=== PATIENT | female | born 1945 | race Hispanic/Latino ===

== ENCOUNTER 2017-10-05 18:05 | Emergency (ER) | payer MEDICARE, BC ==
[2017-10-05 18:09] VITALS: BP 147/77; PULSE 73; RESP 16; TEMP 97.9; O2SAT 96
[2017-10-05 18:10] VITALS: BMI 31.8
[2017-10-05] MEDS ORDERED: Nitroglycerin 2% Ointment Foilpak UD TOP ONE ×2 (18:48→20:39)
--- NOTE | 2017-10-05 19:08 | ED PDOC ---
HPI: Skin/Bite Injury Time Seen by Provider: 10/05/17 18:28 Chief Complaint (Nursing): Abnormal Skin Integrity Chief Complaint (Provider): Needlestick injury History Per: Patient History/Exam Limitations: no limitations Onset/Duration Of Symptoms: Hrs (3.5) Current Symptoms Are (Timing): Still Present Location Of Injury: Left: Hand (left 2nd digit) Additional History Per: Patient Additional Complaint(s): 72yo female, comes to ER for evaluation after she accidentally injected herself with an Epipen at 1700 today. Patient is now complaining of discoloration to the digit. Otherwise, she denies any numbness, tingling, weakness in here finger. No other complaints. Past Medical History Reviewed: Historical Data, Nursing Documentation, Vital Signs Vital Signs: Last Vital Signs Temp 97.9 F 10/05/17 18:09 Pulse 73 10/05/17 18:09 Resp 16 10/05/17 18:09 BP 147/77 10/05/17 18:09 Pulse Ox 96 10/05/17 23:38 - Medical History PMH: HTN, Hypothyroidism - Surgical History Surgical History: No Surg Hx - Family History Family History: States: No Known Family Hx - Living Arrangements Living Arrangements: With Family - Allergies Allergies/Adverse Reactions: Allergies Allergy/AdvReac Type Severity Reaction Status Date / Time FISH Allergy ANAPHYLAXIS Verified 10/05/17 18:14 shellfish derived Allergy ANAPHYLAXIS Verified 10/05/17 18:14 Review of Systems ROS Statement: Except As Marked, All Systems Reviewed And Found Negative Musculoskeletal: Positive for: Other (pale left 2nd digit s/p needlestick inj) Neurological: Negative for: Weakness, Numbness Physical Exam - Reviewed Nursing Documentation Reviewed: Yes Vital Signs Reviewed: Yes - Physical Exam Appears: Positive for: Non-toxic, No Acute Distress Head Exam: Positive for: ATRAUMATIC, NORMAL INSPECTION, NORMOCEPHALIC Skin: Positive for: Pallor (left 2nd digit pale, cool to touch. ecchymosis to distal anterior tip with puncture wound.) Eye Exam: Positive for: Normal appearance Cardiovascular/Chest: Positive for: Regular Rate, Rhythm Respiratory: Positive for: Normal Breath Sounds Pulses-Radial (L): 2+ Pulses-Radial (R): 2+ Extremity: Positive for: Normal ROM (FROM elft 2nd digits; normal sensations). Negative for: Tenderness, Deformity, Swelling Neurologic/Psych: Positive for: Alert, Oriented. Negative for: Motor/Sensory Deficits - ECG O2 Sat by Pulse Oximetry: 96 (RA) Pulse Ox Interpretation: Normal - Critical Care Total Time (In Min): 60 Documented Critical Care: Time excludes all time spent performint seperately billable procedures Medical Decision Making Medical Decision Making: Impression: Left 2nd digit injury Plan: 18:45 Finger placed in warm water. 18:50 Topical Nitro applied to finger. 19:15 Digital block of left 2nd digit performed with lidocaine 2%. 0.25 cc Terbuteline injected SC to left 2nd digit. 2040 Patient with some improvement. 2nd topical Nitro applied to finger. Scribe Attestation: Documented by Marilyn Aguilera, acting as a scribe for Mari Mckeon MD. Provider Scribe Attestation: All medical record entries made by the Scribe were at my direction and personally dictated by me. I have reviewed the chart and agree that the record accurately reflects my personal performance of the history, physical exam, medical decision making, and the department course for this patient. I have also personally directed, reviewed, and agree with the discharge instructions and disposition. Disposition - Clinical Impression Clinical Impression: Accidental injection of epinephrine - Disposition Condition: IMPROVED Additional Instructions: CONTINUE WARM COMPRESSES. FOLLOW-UP WITH PMD WITHIN 2 DAYS FOR REEVALUATION. RETURN TO ED IF YOU DEVELOP PALE COLOR, NUMBNESS OR ANY OTHER CONCERNS. Instructions: Epinephrine Autoinjectors Forms: [facility] (Turkmen)
[2017-10-05] MEDS ORDERED: Nitroglycerin 2% 15 INCH/30 GM TUBE TOP STA (19:17)
[2017-10-05] MEDS ORDERED: Lidocaine PF 2% (5 ml) Inj (For Cardiac Arrhy) IV STA (19:18)
[2017-10-05] MEDS ORDERED: Nitroglycerin 2% Ointment Foilpak UD TOP STA (20:37)
--- NOTE | 2017-10-06 08:22 | RAD ---
PROCEDURE: Bilateral hand radiographs. HISTORY: Puncture 2nd digit COMPARISON: None. FINDINGS: BONES: No acute fracture or destructive bony lesion identified, bilaterally. Joint space narrowing and articular cortical sclerosis are identified throughout the proximal and distal interphalangeal joints diffusely as well as at the carpometacarpal greater than carpal phalangeal joints diffusely, compatible with degenerative joint disease in a symmetric pattern bilaterally. No subluxation or dislocation. Local soft tissues appear diffusely unremarkable. No retained radiodense foreign body is identified including at the index fingers of both hands. A tiny linear radiodensity seen in the superficial volar soft tissues anterior to the level of the distal interphalangeal joint right long finger. Consider a retained foreign body or proximal heterotopic calcification. JOINTS: As above. SOFT TISSUES: As above. OTHER FINDINGS: None. IMPRESSION: No acute fracture, dislocation or subluxation. No destructive bony lesions bilaterally. Mild degenerative joint disease identified bilaterally. No retained radiodense foreign body or emphysema soft tissue changes seen related to any of the digits throughout the bilateral hands including the bilateral index fingers. A tiny linear radiodensity seen in the superficial volar soft tissues anterior to the level of the distal interphalangeal joint right long finger. Consider a retained foreign body or proximal heterotopic calcification.
== END 2017-10-05 22:40 | disposition home or self-care (01) ==
LOC: H.ER 18:05
DX: S61.231A Puncture wound without foreign body of left index finger without damage to nail, initial encounter (principal); W46.1XXA Contact with contaminated hypodermic needle, initial encounter; Y92.89 Other specified places as the place of occurrence of the external cause; E03.9 Hypothyroidism, unspecified; I10 Essential (primary) hypertension
CPT/HCPCS: 73130; 96372; 99282; J3105